=== PATIENT | female | born 1950 | race Hispanic/Latino ===

== ENCOUNTER → 2017-12-03 | Outpatient (CLI) | payer OTHER ==
[~2017-12-03] MED LIST: ASPI-555 PO; ATOR10TA69 PO; BETA1TAB18 PO; CANA300T PO; CHOL200012 PO; FLUO40CA49 PO; GUAI600T50 PO; INSU100I24 SQ; INSU100V9 SQ; LOSA100T29 PO; METF10004 PO; METO25TA6 PO; PANT40TA25 PO
== END ==
LOC: RAH 16:06
PROVIDERS: ATTEND Internal Medicine
DX: K76.0 Fatty (change of) liver, not elsewhere classified (principal); K80.20 Calculus of gallbladder without cholecystitis without obstruction; N32.89 Other specified disorders of bladder
CPT/HCPCS: 76700

== ENCOUNTER → 2018-01-05 | Outpatient (CLI) | payer OTHER | LOC: RAH 09:36 | PROVIDERS: ATTEND Internal Medicine | DX: Z12.31 Encounter for screening mammogram for malignant neoplasm of breast (principal) | CPT/HCPCS: 77067 ==

== ENCOUNTER → 2018-04-12 | Outpatient (CLI) | payer OTHER | END | disposition home or self-care (01) | LOC: RAH 11:45 | PROVIDERS: ATTEND Internal Medicine | DX: M47.896 Other spondylosis, lumbar region (principal) | CPT/HCPCS: 72070; 72100 ==

== ENCOUNTER 2018-07-28 17:13 | Observation (INO) | payer OTHER ==
[~2018-07-28] VITALS: Ht 157.5 cm; Wt 80.8 kg
[~2018-07-28 17:13] MED LIST changes: +LOSA100T20 PO; -LOSA100T29 PO; +METF-446 PO; -METF10004 PO
[2018-07-28] MEDS ORDERED: SODIUM CHLORIDE 0.9% 1000ML 1,000 ML IV ONE (18:14)
[2018-07-28] MEDS ORDERED: SODIUM CHLORIDE 0.9% 100 ML IV ONE (18:20)
[2018-07-28 18:25] LABS: BASOPHILS % (AUTO) 0.5 % (0.0-5.0); EOSINOPHILS % (AUTO) 2.1 % (0.0-8.0); HEMATOCRIT 21.9 % (36-48); LYMPHOCYTES % (AUTO) 28.3 % (21.0-51.0); MEAN CORPUSCULAR HEMOGLOBIN 20.6 pg (27.0-33.0); MEAN CORPUSCULAR HGB CONC 30.1 g/dL (32.0-36.0); MEAN CORPUSCULAR VOLUME 68.3 fL (79-99); MONOCYTES % (AUTO) 11.8 % (3.0-13.0); NEUTROPHILS % (AUTO) 57.3 % (40.0-77.0); PLATELET COUNT (AUTO) 176 K/uL (130-400); RED CELL DISTRIBUTION WIDTH 21.3 % (11.0-15.5)
[2018-07-28 18:29] LABS: POTASSIUM 4.1 mmol/L (3.5-5.1)
[2018-07-28 21:15] VITALS: BP 123/63
[2018-07-28 22:25] LABS: BASOPHILS % (AUTO) 0.8 % (0.0-5.0); EOSINOPHILS % (AUTO) 1.7 % (0.0-8.0); HEMATOCRIT 21.2 % (36-48); LYMPHOCYTES % (AUTO) 27.6 % (21.0-51.0); MEAN CORPUSCULAR HEMOGLOBIN 20.4 pg (27.0-33.0); MEAN CORPUSCULAR HGB CONC 29.7 g/dL (32.0-36.0); MEAN CORPUSCULAR VOLUME 68.6 fL (79-99); MONOCYTES % (AUTO) 11.6 % (3.0-13.0); NEUTROPHILS % (AUTO) 58.3 % (40.0-77.0); NUCLEATED RED BLOOD CELLS 0.1 % (0.0-0.19); PLATELET COUNT (AUTO) 153 K/uL (130-400); RED BLOOD CELL COUNT(AUTO) 3.09 MIL/uL (4.00-5.50); RED CELL DISTRIBUTION WIDTH 21.4 % (11.0-15.5); WHITE BLOOD COUNT (AUTO) 4.8 K/uL (4.8-10.8)
[2018-07-28 22:39] LABS: INR 1.08 (0.85-1.15); PROTHROMBIN TIME 11.3 SEC (9.6-11.6)
[2018-07-28 22:41] LABS: % IRON SATURATION 94.3 % (22-44)
[2018-07-28 22:46] LABS: ALBUMIN 3.2 g/dL (3.5-5.0); BILIRUBIN,TOTAL 0.5 mg/dL (0.2-1.0); CREATININE 0.9 mg/dL (0.5-1.5); POTASSIUM 3.2 mmol/L (3.5-5.1); TOTAL PROTEIN, SERUM 6.7 g/dL (6.0-8.3)
[2018-07-28] MEDS ORDERED: CEPH500C2 PO (23:52)
[2018-07-28] MEDS ORDERED: FERR325T22 PO (23:54)
[2018-07-29] VITALS (17 sets, daily range): BP systolic 112–156; BP diastolic 56–80
[2018-07-29] MEDS: SODIUM CHLORIDE 0.9% 1000ML 1,000 ML IV SCH ×2 (05:45→12:57)
[2018-07-29] MEDS ORDERED: PITA4TAB2 PO (05:47)
[2018-07-29] MEDS ORDERED: TRAM50TA4 PO (05:47)
[2018-07-29] MEDS ORDERED: POLY17PO4 PO (05:48)
[2018-07-29] MEDS ORDERED: FURO40TA5 PO (05:49)
[2018-07-29] MEDS ORDERED: DULO60CA63 PO ×2 (05:50→09:52)
[2018-07-29] MEDS ORDERED: EMPA25TA PO (05:51)
[2018-07-29 05:54] LABS: BASOPHILS % (AUTO) 0.7 % (0.0-5.0); EOSINOPHILS % (AUTO) 1.6 % (0.0-8.0); HEMATOCRIT 27.4 % (36-48); LYMPHOCYTES % (AUTO) 27.3 % (21.0-51.0); MEAN CORPUSCULAR HEMOGLOBIN 22.7 pg (27.0-33.0); MEAN CORPUSCULAR HGB CONC 31.3 g/dL (32.0-36.0); MEAN CORPUSCULAR VOLUME 72.5 fL (79-99); MONOCYTES % (AUTO) 10.7 % (3.0-13.0); NEUTROPHILS % (AUTO) 59.7 % (40.0-77.0); NUCLEATED RED BLOOD CELLS 0.1 % (0.0-0.19); PLATELET COUNT (AUTO) 158 K/uL (130-400); RED BLOOD CELL COUNT(AUTO) 3.78 MIL/uL (4.00-5.50); RED CELL DISTRIBUTION WIDTH 23.3 % (11.0-15.5); WHITE BLOOD COUNT (AUTO) 5.6 K/uL (4.8-10.8)
[2018-07-29 05:59] LABS: CREATININE 0.9 mg/dL (0.5-1.5); POTASSIUM 3.6 mmol/L (3.5-5.1)
[2018-07-29 06:05] LABS: ALBUMIN 3.2 g/dL (3.5-5.0); BILIRUBIN,TOTAL 1.5 mg/dL (0.2-1.0); TOTAL PROTEIN, SERUM 6.7 g/dL (6.0-8.3)
[2018-07-29] MEDS: POLYETHYLENE GLYCOL 3350 17 GM POWD.PACK PO SCH ×2 (09:00→14:41)
[2018-07-29] MEDS: CEPHALEXIN 500 MG CAPSULE PO SCH ×2 (09:00→13:00)
[2018-07-29] MEDS ORDERED: **HM** JARDIANCE 25MG PO SCH (09:00)
[2018-07-29] MEDS ORDERED: DULOXETINE HCL 30 MG CAP PO SCH (09:00)
[2018-07-29] MEDS ORDERED: LIVALO 4 MG PO SCH (09:00)
[2018-07-29] MEDS ORDERED: METOPROLOL TARTRATE 50 MG TAB PO SCH (09:00)
[2018-07-29] MEDS ORDERED: PANTOPRAZOLE SODIUM 40 MG TABLET.DR PO SCH (09:00)
[2018-07-29] MEDS ORDERED: LOSARTAN 50 MG TABLET PO SCH (09:00)
[2018-07-29] MEDS ORDERED: FUROSEMIDE 40 MG TABLET PO SCH (09:00)
[2018-07-29] MEDS ORDERED: ASPIRIN 81MG TAB.CHEW PO SCH (09:00)
[2018-07-29] MEDS ORDERED: TRAMADOL HCL 50 MG TABLET PO SCH (09:00)
[2018-07-29] MEDS ORDERED: ACETAMINOPHEN 325 MG TAB PO PRN ×2 (10:00)
[2018-07-29] MEDS ORDERED: INSU100I24 SQ (10:10)
[2018-07-29] MEDS ORDERED: OCTREOTIDE ACETATE 1,000 MCG in SODIUM CHLORIDE 0.9% 95 ML IV SCH (12:30)
[2018-07-29] MEDS: FERROUS SULFATE 325 MG TABLET.DR PO SCH ×2 (13:00→13:03)
[2018-07-29 16:11] LABS: HEMATOCRIT 26.8 % (36-48)
[2018-07-29] MEDS ORDERED: METOPROLOL TARTRATE 25 MG TAB PO SCH (21:00)
== END 2018-07-29 20:21 | disposition home or self-care (01) ==
LOC: EDH 17:13 → EDHIP 17:36 → 4CH 21:36
PROVIDERS: ADMIT Internal Medicine; ATTEND Internal Medicine
DX: D64.9 Anemia, unspecified (principal); E11.22 Type 2 diabetes mellitus with diabetic chronic kidney disease; E11.36 Type 2 diabetes mellitus with diabetic cataract; E11.65 Type 2 diabetes mellitus with hyperglycemia; E66.01 Morbid (severe) obesity due to excess calories; F11.20 Opioid dependence, uncomplicated; I13.0 Hypertensive heart and chronic kidney disease with heart failure and stage 1 through stage 4 chronic kidney disease, or unspecified chronic kidney disease; I50.32 Chronic diastolic (congestive) heart failure; I85.00 Esophageal varices without bleeding; I25.10 Atherosclerotic heart disease of native coronary artery without angina pectoris; F33.1 Major depressive disorder, recurrent, moderate; K21.9 Gastro-esophageal reflux disease without esophagitis; K29.70 Gastritis, unspecified, without bleeding; K43.9 Ventral hernia without obstruction or gangrene; J30.9 Allergic rhinitis, unspecified; K57.90 Diverticulosis of intestine, part unspecified, without perforation or abscess without bleeding; K76.0 Fatty (change of) liver, not elsewhere classified; K76.6 Portal hypertension; K80.20 Calculus of gallbladder without cholecystitis without obstruction; N18.2 Chronic kidney disease, stage 2 (mild); Z68.35 Body mass index [BMI] 35.0-35.9, adult; K92.2 Gastrointestinal hemorrhage, unspecified; Z79.4 Long term (current) use of insulin; Z79.82 Long term (current) use of aspirin; Z80.0 Family history of malignant neoplasm of digestive organs
CPT/HCPCS: 36415 ×2; 36430; 43244; 80053 ×2; 82948 ×3; 83540; 83550; 85014; 85018; 85025 ×3; 85610; 86850; 86900; 86901; 86922; 96365; 96366; 99285; G0378 ×27; J2354; J7030; P9016 ×2; 80048; C9113

== ENCOUNTER → 2018-08-16 | Outpatient (CLI) | payer OTHER ==
[~2018-08-16] MED LIST changes: -ASPI-555 PO; -ATOR10TA69 PO; -CANA300T PO; +CEPH500C2 PO; +DULO60CA63 PO; +FERR325T22 PO; -FLUO40CA49 PO; -GUAI600T50 PO; -INSU100V9 SQ; +PITA4TAB2 PO; +POLY17PO4 PO; +TRAM50TA4 PO
== END | disposition home or self-care (01) ==
LOC: RAH 07:34
PROVIDERS: ATTEND Internal Medicine Gastroenterology
DX: K80.20 Calculus of gallbladder without cholecystitis without obstruction (principal); D73.4 Cyst of spleen
CPT/HCPCS: 76700

== ENCOUNTER 2018-08-31 08:15 | Day surgery (SDC) | payer OTHER ==
[~2018-08-31] VITALS: Ht 157.5 cm; Wt 78.5 kg
[2018-08-31 10:04] VITALS: BP 168/74
[2018-08-31] MEDS ORDERED: SODIUM CHLORIDE 0.9% 1000ML 1,000 ML IV ONE (10:07)
[2018-08-31] MEDS ORDERED: PROPOFOL 10 MG/ML 20ML VIAL IV ONE ×2 (10:22)
[2018-08-31] MEDS ORDERED: FURO40TA5 PO (10:37)
[2018-08-31] MEDS ORDERED: INSU100I15 SQ (10:37)
[2018-08-31 10:38] VITALS: BP 134/70
[2018-08-31 10:43] VITALS: BP 148/75
[2018-08-31 10:48] VITALS: BP 163/87
[2018-08-31 10:53] VITALS: BP 162/84
[2018-08-31 10:56] VITALS: BP 165/71
== END 2018-08-31 11:10 | disposition home or self-care (01) ==
LOC: DAH 08:15
PROVIDERS: ATTEND Internal Medicine Gastroenterology
DX: I85.00 Esophageal varices without bleeding (principal); K76.6 Portal hypertension; K31.89 Other diseases of stomach and duodenum; Z86.010 Personal history of colon polyps; K21.9 Gastro-esophageal reflux disease without esophagitis; E78.5 Hyperlipidemia, unspecified; I10 Essential (primary) hypertension; J30.9 Allergic rhinitis, unspecified; E11.9 Type 2 diabetes mellitus without complications; F32.9 Major depressive disorder, single episode, unspecified; I25.10 Atherosclerotic heart disease of native coronary artery without angina pectoris; Z98.890 Other specified postprocedural states; D64.9 Anemia, unspecified; Z79.899 Other long term (current) drug therapy; Z79.84 Long term (current) use of oral hypoglycemic drugs; Z88.0 Allergy status to penicillin; Z68.32 Body mass index [BMI] 32.0-32.9, adult; I21.3 ST elevation (STEMI) myocardial infarction of unspecified site
CPT/HCPCS: 43244; 82948 ×2; 93005; A4606; J2704 ×2; J7030

== ENCOUNTER → 2018-11-11 | Outpatient (CLI) | payer OTHER ==
[~2018-11-11] MED LIST changes: -BETA1TAB18 PO; -CEPH500C2 PO; -CHOL200012 PO; +FURO40TA5 PO; +INSU100I15 SQ; -LOSA100T20 PO; +LOSA100T58 PO
== END | disposition home or self-care (01) ==
LOC: OIH 09:53
PROVIDERS: ATTEND Internal Medicine
DX: M19.042 Primary osteoarthritis, left hand (principal)
CPT/HCPCS: 73090

== ENCOUNTER → 2019-02-07 | Outpatient (CLI) | payer OTHER | END | disposition home or self-care (01) | LOC: RAH 11:18 | PROVIDERS: ATTEND Internal Medicine | DX: R06.00 Dyspnea, unspecified (principal) | CPT/HCPCS: 71046 ==

== ENCOUNTER → 2019-03-07 | Outpatient (CLI) | payer OTHER ==
[2019-03-07 13:09] LABS: BASOPHILS % (AUTO) 0.6 % (0.0-5.0); EOSINOPHILS % (AUTO) 0.8 % (0.0-8.0); HEMATOCRIT 50.3 % (36-48); LYMPHOCYTES % (AUTO) 30.7 % (21.0-51.0); MEAN CORPUSCULAR HGB CONC 34.6 g/dL (32.0-36.0); MEAN CORPUSCULAR VOLUME 95.5 fL (79-99); MONOCYTES % (AUTO) 9.6 % (3.0-13.0); NEUTROPHILS % (AUTO) 58.3 % (40.0-77.0); NUCLEATED RED BLOOD CELLS 0.1 % (0.0-0.19); PLATELET COUNT (AUTO) 151 K/uL (130-400); RED BLOOD CELL COUNT(AUTO) 5.27 MIL/uL (4.00-5.50); RED CELL DISTRIBUTION WIDTH 12.4 % (11.0-15.5); WHITE BLOOD COUNT (AUTO) 7.7 K/uL (4.8-10.8)
[2019-03-07 13:19] LABS: INR 1.03 (0.85-1.15); PROTHROMBIN TIME 10.8 SEC (9.6-11.6)
[2019-03-07 14:09] LABS: ALBUMIN 4.1 g/dL (3.5-5.0); BILIRUBIN,TOTAL 0.9 mg/dL (0.2-1.0); CREATININE 1.1 mg/dL (0.5-1.5); POTASSIUM 4.7 mmol/L (3.5-5.1); TOTAL PROTEIN, SERUM 8.4 g/dL (6.0-8.3)
== END | disposition home or self-care (01) ==
LOC: RAH 12:26
PROVIDERS: ATTEND Internal Medicine
DX: M47.816 Spondylosis without myelopathy or radiculopathy, lumbar region (principal); K74.60 Unspecified cirrhosis of liver
CPT/HCPCS: 36415; 72100; 80053; 85025; 85610

== ENCOUNTER → 2019-05-29 | Outpatient (CLI) | payer OTHER ==
[~2019-05-29] MED LIST changes: -DULO60CA63 PO; +DULO60CA64 PO
[2019-05-29 17:21] LABS: HEMOGLOBIN A1C 7.9 % (4.0-6.0)
== END | disposition home or self-care (01) ==
LOC: RAH 16:31
PROVIDERS: ATTEND Internal Medicine
DX: R14.0 Abdominal distension (gaseous) (principal); K72.90 Hepatic failure, unspecified without coma; E11.9 Type 2 diabetes mellitus without complications; Z79.4 Long term (current) use of insulin
CPT/HCPCS: 36415; 74021; 82140; 83036

== ENCOUNTER → 2019-08-08 | Outpatient (CLI) | payer OTHER | END | disposition home or self-care (01) | LOC: RAH 12:33 | PROVIDERS: ATTEND Internal Medicine | DX: M79.89 Other specified soft tissue disorders (principal) | CPT/HCPCS: 73630 ==

== ENCOUNTER → 2020-01-08 | Outpatient (CLI) | payer OTHER | END | disposition home or self-care (01) | LOC: OIH 12:47 | PROVIDERS: ATTEND Internal Medicine | DX: M47.816 Spondylosis without myelopathy or radiculopathy, lumbar region (principal); E88.89 Other specified metabolic disorders; W19.XXXA Unspecified fall, initial encounter | CPT/HCPCS: 72100; 72220 ==

== ENCOUNTER → 2020-02-14 | Outpatient (CLI) | payer OTHER | END | disposition home or self-care (01) | LOC: RAH 11:34 | PROVIDERS: ATTEND Internal Medicine | DX: R90.82 White matter disease, unspecified (principal); R27.0 Ataxia, unspecified | CPT/HCPCS: 70450 ==

== ENCOUNTER → 2020-02-15 | Outpatient (CLI) | payer OTHER | END | disposition home or self-care (01) | LOC: RAH 10:48 | PROVIDERS: ATTEND Internal Medicine | DX: Z12.31 Encounter for screening mammogram for malignant neoplasm of breast (principal) | CPT/HCPCS: 77067 ==

== ENCOUNTER → 2020-04-05 | Outpatient (CLI) | payer OTHER | END | disposition home or self-care (01) | LOC: RAH 12:27 | PROVIDERS: ATTEND Internal Medicine | DX: S02.2XXA Fracture of nasal bones, initial encounter for closed fracture (principal); W06.XXXA Fall from bed, initial encounter; X58.XXXA Exposure to other specified factors, initial encounter; Y93.89 Activity, other specified; Y92.89 Other specified places as the place of occurrence of the external cause; Y99.8 Other external cause status | CPT/HCPCS: 70140 ==

== ENCOUNTER → 2020-12-05 | Outpatient (CLI) | payer OTHER ==
[~2020-12-05] MED LIST changes: -PANT40TA25 PO; +PANT40TA54 PO
== END | disposition home or self-care (01) ==
LOC: RAH 13:18
PROVIDERS: ATTEND Internal Medicine
DX: S06.0X9A Concussion with loss of consciousness of unspecified duration, initial encounter (principal); G31.89 Other specified degenerative diseases of nervous system; X58.XXXA Exposure to other specified factors, initial encounter; Y93.89 Activity, other specified; Y92.89 Other specified places as the place of occurrence of the external cause; Y99.8 Other external cause status
CPT/HCPCS: 70450

== ENCOUNTER → 2020-12-19 | Outpatient (CLI) | payer OTHER | END | disposition home or self-care (01) | LOC: RAH 08:24 | PROVIDERS: ATTEND Internal Medicine | DX: N28.9 Disorder of kidney and ureter, unspecified (principal) | CPT/HCPCS: 93975 ==

== ENCOUNTER → 2021-02-04 | Outpatient (CLI) | payer OTHER | END | disposition home or self-care (01) | LOC: RAH 09:38 | PROVIDERS: ATTEND Internal Medicine | DX: N20.0 Calculus of kidney (principal); R16.1 Splenomegaly, not elsewhere classified | CPT/HCPCS: 76700 ==

== ENCOUNTER → 2021-02-18 | Outpatient (CLI) | payer OTHER | END | disposition home or self-care (01) | LOC: RAH 09:28 | PROVIDERS: ATTEND Internal Medicine | DX: Z12.31 Encounter for screening mammogram for malignant neoplasm of breast (principal); N64.89 Other specified disorders of breast | CPT/HCPCS: 77067 ==

== ENCOUNTER 2021-07-13 13:36 | Inpatient (IN) | payer OTHER ==
[~2021-07-13] VITALS: Ht 157.5 cm; Wt 75.7 kg
[~2021-07-13 13:36] MED LIST changes: +CEPH500C2 PO
[2021-07-13] MEDS ORDERED: INSULIN HUMULIN R 100 UNIT/ML 3ML ONE (13:56)
[2021-07-13] MEDS ORDERED: 0.9%NACL 1000ML 1,000 ML IV ONE ×2 (13:56→14:00)
[2021-07-13] MEDS ORDERED: INSULIN HUMULIN R 100 UNIT/ML 3ML IV ONE (14:00)
[2021-07-13 14:07] LABS: BASOPHILS % (AUTO) 0.2 % (0.0-5.0); EOSINOPHILS % (AUTO) 0.1 % (0.0-8.0); LYMPHOCYTES % (AUTO) 17.5 % (21.0-51.0); MEAN CORPUSCULAR HEMOGLOBIN 34.5 pg (27.0-33.0); MEAN CORPUSCULAR HGB CONC 32.9 g/dL (32.0-36.0); MONOCYTES % (AUTO) 7.6 % (3.0-13.0); NEUTROPHILS % (AUTO) 69.5 % (40.0-77.0); NUCLEATED RED BLOOD CELLS 1.8 % (0.0-0.19); PLATELET COUNT (AUTO) 259 K/uL (130-400); RED BLOOD CELL COUNT(AUTO) 1.39 MIL/uL (4.00-5.50); RED CELL DISTRIBUTION WIDTH 19.3 % (11.0-15.5); WHITE BLOOD COUNT (AUTO) 26.8 K/uL (4.8-10.8)
[2021-07-13 14:19] LABS: HEMATOCRIT 14.6 % (36-48)
[2021-07-13 14:31] LABS: ALBUMIN 2.6 g/dL (3.5-5.0); BILIRUBIN,TOTAL 0.5 mg/dL (0.2-1.0); CREATININE 1.6 mg/dL (0.5-1.5); CRP QUANTITATIVE 4.3 mg/L (0.00-9.0); POTASSIUM 4.2 mmol/L (3.5-5.1); TOTAL PROTEIN, SERUM 5.2 g/dL (6.0-8.3)
[2021-07-13] MEDS ORDERED: NITROGLYCERIN 1GM OINT 1 INCH/1GM TD ONE ×2 (14:46→15:00)
[2021-07-13 15:00] LABS: B-TYPE NATRIURETIC PEPTIDE 42 pg/mL (0-100)
[2021-07-13] MEDS ORDERED: 0.9%NACL 1000ML 1,000 ML IV SCH (16:30)
[2021-07-13] MEDS ORDERED: ONDANSETRON 4MG INJ IV PRN (16:30)
[2021-07-13] MEDS ORDERED: ACETAMINOPHEN 325 MG TAB PO PRN ×2 (16:30)
[2021-07-13] MEDS ORDERED: OCTREOTIDE ACETATE 1,250 MCG in 0.9% NACL 250ML 250 ML IV SCH (17:00)
[2021-07-13] MEDS ORDERED: POTASSIUM BICARB/CIT AC 25 MEQ TABLET.EFF ONE (17:00)
[2021-07-13] MEDS ORDERED: FOLIC ACID 1 MG TABLET PO ONE (17:23)
[2021-07-13 17:31] LABS: RETICULOCYTE % (AUTO) 15.42 % (0.42-2.23)
[2021-07-13 17:45] LABS: ALCOHOL, BLOOD 4 mg/dL (0-10); AMMONIA 8 umol/L (11-32)
[2021-07-13 17:47] LABS: INR 1.15 (0.85-1.15); PROTHROMBIN TIME 12.4 SEC (9.6-11.6)
[2021-07-13 17:48] LABS: % IRON SATURATION 7.9 % (22-44); PARTIAL THROMBOPLASTIN TIME < 20.0 SEC (26.3-35.5)
[2021-07-13] MEDS ORDERED: 0.9% NACL 500ML IV.SOLN 500 ML IV ONE (17:49)
[2021-07-13 18:20] LABS: MAGNESIUM 2.1 mg/dL (1.80-2.40); PHOSPHORUS 2.3 mg/dL (2.5-4.9)
[2021-07-13 19:37] LABS: APPEARANCE,URINE Clear (CLEAR); BILIRUBIN,URINE Negative (NEGATIVE); COLOR,URINE Yellow (YELLOW); GLUCOSE, URINE (UA) >=1000 mg/dL (NEGATIVE); KETONES,URINE Trace mg/dL (NEGATIVE); LEUKOCYTE ESTERASE ,URINE Negative (NEGATIVE); NITRATE,URINE Negative (NEGATIVE); OCCULT BLOOD,URINE Negative (NEGATIVE); PH,URINE 5.5 (5.0-8.0); PROTEIN,URINE Negative (NEGATIVE); UROBILINOGEN,URINE 0.2 mg/dL (0.2-1.0)
[2021-07-13 19:51] LABS: BACTERIA,URINE Few /HPF (None Seen); MUCUS,URINE Few LPF (None Seen); RBC,URINE 0-1 /HPF (0-1); SQUAMOUS EPITHELIAL CELL,UR Few /HPF (0-2)
[2021-07-13] MEDS ORDERED: THIAMINE HCL 100 MG/ML 2ML VIAL ONE (19:56)
[2021-07-13] MEDS: LEVOFLOXACIN 500 MG/D5W 100 ML 100 ML IV SCH (19:58)
[2021-07-13] MEDS: THIAMINE HCL 100 MG/ML 2ML VIAL IVP SCH (19:58)
[2021-07-13] MEDS: PANTOPRAZOLE 40MG INJ 80 MG in 0.9%NACL 100ML 100 ML IV SCH (19:58)
[2021-07-13] MEDS: TRAMADOL HCL 50 MG TABLET PO SCH (20:59)
[2021-07-14] VITALS (14 sets, daily range): BP systolic 104–140; BP diastolic 56–94
[2021-07-14] MEDS ORDERED: PANTOPRAZOLE 40 MG/VIAL ONE (04:07)
[2021-07-14] MEDS: PANTOPRAZOLE 40MG INJ 80 MG in 0.9%NACL 100ML 100 ML IV SCH (04:15)
[2021-07-14 06:28] LABS: HEMATOCRIT 21.8 % (36-48)
[2021-07-14] MEDS: TRAMADOL HCL 50 MG TABLET PO SCH (09:00)
[2021-07-14] MEDS ORDERED: PITAVASTATIN CALCIUM 4 MG PO SCH (09:00)
[2021-07-14] MEDS: THIAMINE HCL 100 MG/ML 2ML VIAL IVP SCH ×3 (09:24→20:32)
[2021-07-14] MEDS ORDERED: PROPOFOL 10 MG/ML 20ML VIAL IV ONE (11:49)
[2021-07-14 11:59] LABS: HEMOGLOBIN A1C 6.8 % (4.0-6.0)
[2021-07-14] MEDS ORDERED: INSULIN HUMULIN R 100 UNIT/ML 3ML SQ SCH (12:00)
[2021-07-14] MEDS ORDERED: SUCCINYLCHOLINE 200MG/10ML SYR ONE (12:03)
[2021-07-14] MEDS ORDERED: CLOT15CR5 TP (12:30)
[2021-07-14] MEDS ORDERED: SERT-438 PO (12:30)
[2021-07-14] MEDS ORDERED: FLUT16H EN (12:30)
[2021-07-14] MEDS ORDERED: LOSA50TA64 PO (12:30)
[2021-07-14] MEDS ORDERED: INSU100I24 SQ (12:30)
[2021-07-14] MEDS ORDERED: INSU100V SQ (12:30)
[2021-07-14] MEDS ORDERED: SPIR50TA5 PO (12:30)
[2021-07-14] MEDS ORDERED: MV-M1TAB39 PO (12:33)
[2021-07-14] MEDS ORDERED: SEMA1PEN3 SQ (12:33)
[2021-07-14] MEDS ORDERED: MULT-1258 PO (12:33)
[2021-07-14] MEDS ORDERED: CHOL100046 PO (12:34)
[2021-07-14] MEDS ORDERED: CARB1DRO OP (12:36)
[2021-07-14 14:02] LABS: HEMATOCRIT 21.5 % (36-48)
[2021-07-14] MEDS: LEVOFLOXACIN 500 MG/D5W 100 ML 100 ML IV SCH (16:01)
[2021-07-14] MEDS: INSULIN HUMULIN R 100 UNIT/ML 3ML SQ SCH ×2 (17:17→20:36)
[2021-07-14] MEDS ORDERED: EPOETIN ALFA-EPBX (NON-ESRD) 10,000 UNIT/ML VIAL SQ SCH (19:30)
[2021-07-14] MEDS ORDERED: COMPOUND IV MISC 1 EACH IVSOLN MISC PRN (20:00)
[2021-07-14] MEDS: TRAMADOL HCL 50 MG TABLET PO PRN (20:34)
[2021-07-14] MEDS: IRON SUCROSE COMPLEX 300 MG in 0.9%NACL 50ML 50 ML IV SCH (20:34)
[2021-07-14] MEDS ORDERED: INSULIN GLARGINE 100 UNITS/ML 10 ML VIAL SQ SCH (21:00)
[2021-07-14] MEDS: CARBOXYMETHYLCELLULOSE SODIUM OP SCH (21:00)
[2021-07-14] MEDS ORDERED: CARVEDILOL 3.125 MG TABLET PO SCH (21:00)
[2021-07-14] MEDS: OCTREOTIDE ACETATE 1,250 MCG in 0.9% NACL 250ML 250 ML IV SCH (23:47)
[2021-07-15] VITALS (20 sets, daily range): BP systolic 107–137; BP diastolic 60–77
[2021-07-15 04:03] LABS: ALBUMIN 2.4 g/dL (3.5-5.0); BILIRUBIN,TOTAL 0.7 mg/dL (0.2-1.0); CREATININE 1.4 mg/dL (0.5-1.5); POTASSIUM 4.2 mmol/L (3.5-5.1); TOTAL PROTEIN, SERUM 4.8 g/dL (6.0-8.3)
[2021-07-15 04:14] LABS: BASOPHILS % (AUTO) 0.2 % (0.0-5.0); EOSINOPHILS % (AUTO) 0.7 % (0.0-8.0); LYMPHOCYTES % (AUTO) 12.3 % (21.0-51.0); MEAN CORPUSCULAR HEMOGLOBIN 31.4 pg (27.0-33.0); MEAN CORPUSCULAR HGB CONC 32.9 g/dL (32.0-36.0); MEAN CORPUSCULAR VOLUME 95.5 fL (79-99); MONOCYTES % (AUTO) 10.2 % (3.0-13.0); NUCLEATED RED BLOOD CELLS 2.2 % (0.0-0.19); PLATELET COUNT (AUTO) 137 K/uL (130-400); RED CELL DISTRIBUTION WIDTH 19.9 % (11.0-15.5); WHITE BLOOD COUNT (AUTO) 11.1 K/uL (4.8-10.8)
[2021-07-15] MEDS: INSULIN HUMULIN R 100 UNIT/ML 3ML SQ SCH ×4 (08:13→20:35)
[2021-07-15] MEDS: LACTULOSE 20 GM/30 ML UDCUP PO SCH ×2 (08:29→20:35)
[2021-07-15] MEDS: PANTOPRAZOLE 40 MG/VIAL IVP SCH (08:31)
[2021-07-15] MEDS: THIAMINE HCL 100 MG/ML 2ML VIAL IVP SCH ×2 (08:31→15:54)
[2021-07-15] MEDS: MULTIVITAMIN WITH MINERALS TABLET PO SCH (08:31)
[2021-07-15] MEDS: SERTRALINE HCL 50 MG TABLET PO SCH (08:31)
[2021-07-15] MEDS: **HM**(Cholecalciferol (Vitamin D3) (Vitamin D3) 25 MCG PO SCH (08:41)
[2021-07-15] MEDS: [UNRECOGNIZED DRUG - OTHER] PO SCH (08:41)
[2021-07-15] MEDS: CARBOXYMETHYLCELLULOSE SODIUM OP SCH ×2 (08:41→20:36)
[2021-07-15] MEDS ORDERED: FUROSEMIDE 40 MG TABLET PO SCH (09:00)
[2021-07-15 10:19] LABS: HEMATOCRIT 24.7 % (36-48)
[2021-07-15] MEDS: LEVOFLOXACIN 500 MG/D5W 100 ML 100 ML IV SCH (15:56)
[2021-07-15 17:09] LABS: HEMATOCRIT 26.2 % (36-48)
[2021-07-15] MEDS: IRON SUCROSE COMPLEX 300 MG in 0.9%NACL 50ML 50 ML IV SCH (20:19)
[2021-07-15] MEDS: INSULIN GLARGINE 100 UNITS/ML 10 ML VIAL SQ SCH (20:38)
[2021-07-16] VITALS (17 sets, daily range): BP systolic 104–146; BP diastolic 57–78
[2021-07-16] MEDS: OCTREOTIDE ACETATE 1,250 MCG in 0.9% NACL 250ML 250 ML IV SCH (02:36)
[2021-07-16 03:36] LABS: HEMATOCRIT 25.3 % (36-48); MEAN CORPUSCULAR HEMOGLOBIN 30.5 pg (27.0-33.0); MEAN CORPUSCULAR HGB CONC 32.8 g/dL (32.0-36.0); NUCLEATED RED BLOOD CELLS 0.9 % (0.0-0.19); RED BLOOD CELL COUNT(AUTO) 2.72 MIL/uL (4.00-5.50); RED CELL DISTRIBUTION WIDTH 19.8 % (11.0-15.5)
[2021-07-16 04:02] LABS: CREATININE 1.2 mg/dL (0.5-1.5); POTASSIUM 3.7 mmol/L (3.5-5.1)
[2021-07-16] MEDS: INSULIN HUMULIN R 100 UNIT/ML 3ML SQ SCH ×4 (06:01→20:54)
[2021-07-16] MEDS: LACTULOSE 20 GM/30 ML UDCUP PO SCH ×2 (08:44→20:39)
[2021-07-16] MEDS: SERTRALINE HCL 50 MG TABLET PO SCH (08:44)
[2021-07-16] MEDS: PANTOPRAZOLE 40 MG/VIAL IVP SCH (08:44)
[2021-07-16] MEDS: MULTIVITAMIN WITH MINERALS TABLET PO SCH (08:44)
[2021-07-16] MEDS: CARBOXYMETHYLCELLULOSE SODIUM OP SCH ×2 (08:45→20:43)
[2021-07-16] MEDS: **HM**(Cholecalciferol (Vitamin D3) (Vitamin D3) 25 MCG PO SCH (08:45)
[2021-07-16] MEDS: [UNRECOGNIZED DRUG - OTHER] PO SCH (08:45)
[2021-07-16] MEDS: FUROSEMIDE 40 MG TABLET PO SCH (10:28)
[2021-07-16] MEDS: LEVOFLOXACIN 500 MG/D5W 100 ML 100 ML IV SCH (15:51)
[2021-07-16] MEDS: IRON SUCROSE COMPLEX 300 MG in 0.9%NACL 50ML 50 ML IV SCH (20:39)
[2021-07-16] MEDS: INSULIN GLARGINE 100 UNITS/ML 10 ML VIAL SQ SCH (20:55)
[2021-07-17] VITALS: BP 129/65
[2021-07-17 04:00] VITALS: BP 137/70
[2021-07-17] MEDS: INSULIN HUMULIN R 100 UNIT/ML 3ML SQ SCH ×4 (06:49→22:33)
[2021-07-17 07:00] VITALS: BP 131/71
[2021-07-17] MEDS: LACTULOSE 20 GM/30 ML UDCUP PO SCH ×2 (09:49→22:35)
[2021-07-17] MEDS: MULTIVITAMIN WITH MINERALS TABLET PO SCH (09:50)
[2021-07-17] MEDS: SERTRALINE HCL 50 MG TABLET PO SCH (09:50)
[2021-07-17] MEDS: FUROSEMIDE 40 MG TABLET PO SCH (09:50)
[2021-07-17] MEDS: PANTOPRAZOLE 40 MG TAB DR PO SCH (09:51)
[2021-07-17] MEDS: LEVOFLOXACIN 500 MG/D5W 100 ML 100 ML IV SCH (09:51)
[2021-07-17] MEDS: CARBOXYMETHYLCELLULOSE SODIUM OP SCH ×2 (09:53→22:36)
[2021-07-17] MEDS: [UNRECOGNIZED DRUG - OTHER] PO SCH (09:54)
[2021-07-17] MEDS: **HM**(Cholecalciferol (Vitamin D3) (Vitamin D3) 25 MCG PO SCH (09:54)
[2021-07-17 11:00] VITALS: BP 138/49
[2021-07-17 12:22] LABS: BASOPHILS % (AUTO) 0.1 % (0.0-5.0); EOSINOPHILS % (AUTO) 1.4 % (0.0-8.0); HEMATOCRIT 28.1 % (36-48); LYMPHOCYTES % (AUTO) 13.5 % (21.0-51.0); MEAN CORPUSCULAR HEMOGLOBIN 30.8 pg (27.0-33.0); MEAN CORPUSCULAR HGB CONC 32.4 g/dL (32.0-36.0); MEAN CORPUSCULAR VOLUME 95.3 fL (79-99); MONOCYTES % (AUTO) 8.9 % (3.0-13.0); NEUTROPHILS % (AUTO) 74.5 % (40.0-77.0); NUCLEATED RED BLOOD CELLS 0.4 % (0.0-0.19); PLATELET COUNT (AUTO) 123 K/uL (130-400); RED BLOOD CELL COUNT(AUTO) 2.95 MIL/uL (4.00-5.50); RED CELL DISTRIBUTION WIDTH 19.9 % (11.0-15.5); WHITE BLOOD COUNT (AUTO) 8.4 K/uL (4.8-10.8)
[2021-07-17 12:32] LABS: CREATININE 1.4 mg/dL (0.5-1.5); POTASSIUM 3.2 mmol/L (3.5-5.1)
[2021-07-17 15:00] VITALS: BP 133/64
[2021-07-17] MEDS ORDERED: POTASSIUM CHLORIDE 20MEQ/100ML 100 ML IV PRN (19:00)
[2021-07-17] MEDS ORDERED: LIDOCAINE HCL-MPF 1% 2ML VIAL IV PRN (19:00)
[2021-07-17] MEDS ORDERED: POTASSIUM CHLORIDE 10% ELIXIR 20 MEQ/15 ML UDCUP PO PRN (19:00)
[2021-07-17] MEDS: KCL 20 MEQ ERTAB PO PRN (19:06)
[2021-07-17] MEDS: IRON SUCROSE COMPLEX 300 MG in 0.9%NACL 50ML 50 ML IV SCH (20:00)
[2021-07-17] MEDS ORDERED: INSULIN GLARGINE 100 UNITS/ML 10 ML VIAL SQ SCH (21:00)
[2021-07-17 21:50] VITALS: BP 125/67
[2021-07-18] MEDS: KCL 20 MEQ ERTAB PO PRN ×2 (00:50→06:44)
[2021-07-18 02:03] VITALS: BP 117/51
[2021-07-18 05:12] VITALS: BP 119/47
[2021-07-18] MEDS: INSULIN HUMULIN R 100 UNIT/ML 3ML SQ SCH ×3 (06:46→17:24)
[2021-07-18 08:00] VITALS: BP 128/62
[2021-07-18] MEDS: [UNRECOGNIZED DRUG - OTHER] PO SCH (09:00)
[2021-07-18] MEDS: LEVOFLOXACIN 500 MG/D5W 100 ML 100 ML IV SCH ×2 (09:00→09:33)
[2021-07-18] MEDS: **HM**(Cholecalciferol (Vitamin D3) (Vitamin D3) 25 MCG PO SCH (09:00)
[2021-07-18] MEDS: CARBOXYMETHYLCELLULOSE SODIUM OP SCH (09:00)
[2021-07-18] MEDS: MULTIVITAMIN WITH MINERALS TABLET PO SCH (09:34)
[2021-07-18] MEDS: LACTULOSE 20 GM/30 ML UDCUP PO SCH (09:34)
[2021-07-18] MEDS: SERTRALINE HCL 50 MG TABLET PO SCH (09:34)
[2021-07-18] MEDS: FUROSEMIDE 40 MG TABLET PO SCH (09:34)
[2021-07-18] MEDS: PANTOPRAZOLE 40 MG TAB DR PO SCH (09:34)
[2021-07-18] MEDS ORDERED: LACT10SO75 PO (11:27)
[2021-07-18] MEDS ORDERED: RIFA550T PO (11:27)
[2021-07-18 11:43] VITALS: BP 138/70
[2021-07-18] MEDS: TRAMADOL HCL 50 MG TABLET PO PRN (12:45)
[2021-07-18 16:00] VITALS: BP 119/63
[2021-07-18] MEDS ORDERED: SPIR25TA6 PO (17:14)
[2021-07-18] MEDS ORDERED: SERT-439 PO (17:14)
[2021-07-18] MEDS ORDERED: INSU100I24 SQ (17:14)
[2021-07-18 17:45] LABS: HEMATOCRIT 28.2 % (36-48); MEAN CORPUSCULAR HEMOGLOBIN 31.4 pg (27.0-33.0); MEAN CORPUSCULAR HGB CONC 31.9 g/dL (32.0-36.0); MEAN CORPUSCULAR VOLUME 98.3 fL (79-99); RED BLOOD CELL COUNT(AUTO) 2.87 MIL/uL (4.00-5.50); RED CELL DISTRIBUTION WIDTH 20.4 % (11.0-15.5); WHITE BLOOD COUNT (AUTO) 8.4 K/uL (4.8-10.8)
[2021-07-18 17:56] LABS: CREATININE 1.3 mg/dL (0.5-1.5); POTASSIUM 3.6 mmol/L (3.5-5.1)
[2021-07-18 17:58] LABS: ALBUMIN 2.8 g/dL (3.5-5.0)
[2021-07-18 18:01] LABS: % IRON SATURATION 19.7 % (22-44)
[2021-07-18] MEDS ORDERED: LEVO500T90 PO (19:23)
== END 2021-07-18 19:09 | disposition home or self-care (01) | DRG 432 ==
LOC: EDH 13:36 → EDHIP 16:38 → 2DH 07-14 09:39 → 4DH 07-16 20:47
PROVIDERS: ADMIT Internal Medicine; ATTEND Internal Medicine
PROC: 30233N1 Transfusion of Nonautologous Red Blood Cells into Peripheral Vein, Percutaneous Approach (ICD-10-PCS; 2021-07-13)
PROC: 06L38CZ Occlusion of Esophageal Vein with Extraluminal Device, Via Natural or Artificial Opening Endoscopic (ICD-10-PCS; principal; 2021-07-14)
DX: K74.69 Other cirrhosis of liver (principal); E43 Unspecified severe protein-calorie malnutrition; I21.A1 Myocardial infarction type 2; I85.11 Secondary esophageal varices with bleeding; D62 Acute posthemorrhagic anemia; E87.1 Hypo-osmolality and hyponatremia; K76.6 Portal hypertension; I13.0 Hypertensive heart and chronic kidney disease with heart failure and stage 1 through stage 4 chronic kidney disease, or unspecified chronic kidney disease; I50.32 Chronic diastolic (congestive) heart failure; N17.9 Acute kidney failure, unspecified; R18.8 Other ascites; E86.1 Hypovolemia; E87.8 Other disorders of electrolyte and fluid balance, not elsewhere classified; K21.9 Gastro-esophageal reflux disease without esophagitis; F32.9 Major depressive disorder, single episode, unspecified; D72.829 Elevated white blood cell count, unspecified; E66.9 Obesity, unspecified; Z68.30 Body mass index [BMI] 30.0-30.9, adult; E78.5 Hyperlipidemia, unspecified; I25.10 Atherosclerotic heart disease of native coronary artery without angina pectoris; E11.22 Type 2 diabetes mellitus with diabetic chronic kidney disease; E11.40 Type 2 diabetes mellitus with diabetic neuropathy, unspecified; E11.65 Type 2 diabetes mellitus with hyperglycemia; K72.90 Hepatic failure, unspecified without coma; M85.80 Other specified disorders of bone density and structure, unspecified site; N18.2 Chronic kidney disease, stage 2 (mild); Z96.651 Presence of right artificial knee joint; Z88.0 Allergy status to penicillin; Z79.4 Long term (current) use of insulin; Z79.899 Other long term (current) drug therapy; Z87.19 Personal history of other diseases of the digestive system; Z83.71 Family history of colonic polyps; Z83.3 Family history of diabetes mellitus; Z82.49 Family history of ischemic heart disease and other diseases of the circulatory system; Z82.3 Family history of stroke; Z82.0 Family history of epilepsy and other diseases of the nervous system; Z80.0 Family history of malignant neoplasm of digestive organs; Z82.5 Family history of asthma and other chronic lower respiratory diseases
CPT/HCPCS: 36415; 36430; 43244; 71045; 74176; 80048; 80053; 81001; 82010; 82040; 82140; 82270; 82550; 82607; 82746; 82948; 83036; 83540; 83550; 83605; 83735; 83874; 83880; 84100; 84145; 84484; 85014; 85018; 85025; 85027; 85045; 85610; 85730; 86140; 86850; 86900; 86901; 86923; 87088; 93005; 97039; C9113; G0378; J0330; J1756; J1815; J1956; J2354; J2405; J2704; J3411; J7030; J7040; J7050; P9016

== ENCOUNTER 2022-01-25 02:00 | Emergency (ER) | payer OTHER ==
[~2022-01-25] VITALS: Ht 152.4 cm; Wt 77.1 kg
[~2022-01-25 02:00] MED LIST changes: +CARB1DRO OP; -CEPH500C2 PO; +CHOL100046 PO; +CLOT15CR5 TP; -DULO60CA64 PO; -FERR325T22 PO; +FLUT16H EN; -FURO40TA5 PO; -INSU100I15 SQ; +LACT10SO75 PO; +LEVO500T90 PO; -LOSA100T58 PO; -METF-446 PO; -METO25TA6 PO; +MULT-1258 PO; +MV-M1TAB39 PO; -PITA4TAB2 PO; -POLY17PO4 PO; +RIFA550T PO; +SEMA1PEN3 SQ; +SERT-439 PO; +SPIR25TA6 PO; -TRAM50TA4 PO
[2022-01-25 02:27] LABS: APPEARANCE,URINE Clear (CLEAR); BILIRUBIN,URINE Negative (NEGATIVE); COLOR,URINE Yellow (YELLOW); GLUCOSE, URINE (UA) >=1000 mg/dL (NEGATIVE); KETONES,URINE Negative (NEGATIVE); LEUKOCYTE ESTERASE ,URINE Negative (NEGATIVE); NITRATE,URINE Negative (NEGATIVE); OCCULT BLOOD,URINE Negative (NEGATIVE); PH,URINE 6.5 (5.0-8.0); PROTEIN,URINE Negative (NEGATIVE); UROBILINOGEN,URINE 0.2 mg/dL (0.2-1.0)
[2022-01-25 02:38] LABS: BACTERIA,URINE None Seen /HPF (None Seen); RBC,URINE None Seen /HPF (0-1); WBC,URINE None Seen /HPF (0-1)
[2022-01-25] MEDS ORDERED: ORPHENADRINE CITRATE 30 MG/ML ML ONE (02:59)
[2022-01-25] MEDS ORDERED: KETOROLAC 30MG VIAL (30MG/ML) IM ONE (03:00)
[2022-01-25] MEDS ORDERED: HYDROCODONE/ACETAMINOPHEN 10/325 MG TAB PO ONE (03:00)
[2022-01-25] MEDS ORDERED: ORPHENADRINE CITRATE 30 MG/ML ML IM ONE (03:00)
[2022-01-25] MEDS ORDERED: KETOROLAC 30MG VIAL (30MG/ML) ONE (03:00)
[2022-01-25] MEDS ORDERED: HYDROCODONE/ACETAMINOPHEN 10/325 MG TAB ONE (03:01)
[2022-01-25 03:16] VITALS: BP 140/76
[2022-01-25] MEDS ORDERED: TIZA-330 PO (03:26)
[2022-01-25] MEDS ORDERED: LIDOP TP (03:26)
== END 2022-01-25 03:36 | disposition home or self-care (01) ==
LOC: EDH 02:00
DX: M54.41 Lumbago with sciatica, right side (principal); E11.9 Type 2 diabetes mellitus without complications; I10 Essential (primary) hypertension; Z88.0 Allergy status to penicillin; Z79.899 Other long term (current) drug therapy; Z79.4 Long term (current) use of insulin; Z98.890 Other specified postprocedural states
CPT/HCPCS: 81001; 96372 ×2; 99283; J1885; J2360

== ENCOUNTER → 2022-02-20 | Outpatient (CLI) | payer OTHER ==
[~2022-02-20] MED LIST changes: +LIDOP TP; +TIZA-330 PO
== END | disposition home or self-care (01) ==
LOC: RAH 10:21
PROVIDERS: ATTEND Internal Medicine
DX: Z12.31 Encounter for screening mammogram for malignant neoplasm of breast (principal)
CPT/HCPCS: 77067

== ENCOUNTER → 2022-03-19 | Outpatient (CLI) | payer OTHER | END | disposition home or self-care (01) | LOC: RAH 13:24 | PROVIDERS: ATTEND Internal Medicine | DX: I11.0 Hypertensive heart disease with heart failure (principal); I50.32 Chronic diastolic (congestive) heart failure; R07.9 Chest pain, unspecified; E66.9 Obesity, unspecified; E78.5 Hyperlipidemia, unspecified; Z83.3 Family history of diabetes mellitus | CPT/HCPCS: 93306 ==

== ENCOUNTER 2023-01-05 05:14 | Emergency (ER) | payer OTHER ==
[~2023-01-05] VITALS: Ht 152.4 cm; Wt 78.5 kg
[~2023-01-05 05:14] MED LIST changes: +LEVO-70 PO; -LEVO500T90 PO
[2023-01-05 05:16] VITALS: BP 131/57
== END 2023-01-05 06:06 | disposition left against medical advice (07) ==
LOC: EDH 05:14
DX: M54.9 Dorsalgia, unspecified (principal); Z53.21 Procedure and treatment not carried out due to patient leaving prior to being seen by health care provider
CPT/HCPCS: 99281